=== PATIENT | male | born 1995 | race Caucasian/White ===

== ENCOUNTER 2021-07-11 08:44 | Day surgery (SDC) | payer OTHER ==
[~2021-07-11] VITALS: Ht 185.4 cm; Wt 112.5 kg
[~2021-07-11 08:44] MED LIST: ACET1TAB55 PO
[2021-07-11] MEDS ORDERED: MIDAZOLAM INJ 2MG/2ML VIAL (J2250 PER 1MG) As Ordered ONE (10:15)
[2021-07-11] MEDS ORDERED: ROCURONIUM BROMIDE 50 MG/5 ML VIAL As Ordered ONE (10:15)
[2021-07-11] MEDS ORDERED: SEVOFLURANE INHAL SOLN 250 ML BTL As Ordered ONE (10:15)
[2021-07-11] MEDS ORDERED: DESFLURANE 240 ML INHALANT As Ordered ONE (10:15)
[2021-07-11] MEDS ORDERED: METOCLOPRAMIDE INJ 10MG/2ML VIAL (J2765 PER 1) As Ordered ONE (10:15)
[2021-07-11] MEDS ORDERED: fentaNYL 100 MCG/2 ML INJECTION (J3010) As Ordered ONE ×2 (10:15→10:29)
[2021-07-11] MEDS ORDERED: propofoL 200 MG/20 ML VIAL As Ordered ONE ×2 (10:15→10:28)
[2021-07-11] MEDS ORDERED: dexameTHASONE 4 MG/ML 1ML VIAL (J1100 PER 1MG) As Ordered ONE ×2 (10:15→10:32)
[2021-07-11] MEDS ORDERED: ONDANSETRON 4MG/2ML VIAL As Ordered ONE (10:15)
[2021-07-11] MEDS ORDERED: LIDOCAINE 2% 100MG/5ML SDV (FOR ANES.) As Ordered ONE (10:15)
[2021-07-11] MEDS ORDERED: ACETAMINOPHEN 1000MG 100ML IV BTL (OFIRMEV) (J0131 PER 10MG) As Ordered ONE (10:18)
[2021-07-11] MEDS ORDERED: fentaNYL 100 MCG/2 ML INJECTION (J3010) IV PRN (12:00)
[2021-07-11] MEDS ORDERED: oxyCODONE 5MG TAB PO PRN (12:00)
[2021-07-11] MEDS ORDERED: LR 1,000 ML IV SCH (12:00)
[2021-07-11] MEDS ORDERED: ONDANSETRON 4MG/2ML VIAL IV PRN (12:00)
[2021-07-11 12:57] VITALS: BP 135/89
== END 2021-07-11 13:25 | disposition home or self-care (01) ==
LOC: M SDC 08:44
PROVIDERS: ATTEND Otolaryngology
DX: J35.01 Chronic tonsillitis (principal); J35.1 Hypertrophy of tonsils; G47.9 Sleep disorder, unspecified; R06.83 Snoring; M54.9 Dorsalgia, unspecified; M25.649 Stiffness of unspecified hand, not elsewhere classified; F17.290 Nicotine dependence, other tobacco product, uncomplicated; Z87.81 Personal history of (healed) traumatic fracture
CPT/HCPCS: 42826; 88302; J0131; J1100; J2250; J2405; J2765; J3010

== ENCOUNTER → 2022-03-13 | Outpatient (CLI) | payer OTHER | LOC: M SOG 08:21 | PROVIDERS: ATTEND Orthopaedic Surgery | DX: M25.511 Pain in right shoulder (principal) ==

== ENCOUNTER → 2022-06-19 | Outpatient (CLI) | payer OTHER ==
[~2022-06-19] MED LIST changes: +ISOVUE-300 61% 50ML VIAL As Ordered ONE; +LIDOCAINE 1% MDV 20ML VIAL As Ordered ONE; +NEOSPORIN OINT 0.9 GM PKT As Ordered ONE; +PROHANCE 279.3MG/ML 5ML VIAL As Ordered ONE
== END ==
LOC: M RADPRO 08:45
PROVIDERS: ATTEND Orthopaedic Surgery
DX: M75.41 Impingement syndrome of right shoulder (principal)
CPT/HCPCS: 23350; 73223; 77002; A9576

== ENCOUNTER 2022-07-12 06:17 | Day surgery (SDC) | payer OTHER ==
[~2022-07-12] VITALS: Ht 185.4 cm; Wt 110.2 kg
[~2022-07-12 06:17] MED LIST changes: -ISOVUE-300 61% 50ML VIAL As Ordered ONE; -LIDOCAINE 1% MDV 20ML VIAL As Ordered ONE; -NEOSPORIN OINT 0.9 GM PKT As Ordered ONE; -PROHANCE 279.3MG/ML 5ML VIAL As Ordered ONE; +TRANEXAMIC ACID 100 MG/ML 10ML VIAL IV ONE; +ceFAZolin SOD 2 GM in IV 1 EA IV ONE; +oxyCODONE 5MG TAB PO ONE
[2022-07-12] MEDS ORDERED: LR 1,000 ML IV SCH ×2 (06:40→09:55)
[2022-07-12] MEDS ORDERED: propofoL 200 MG/20 ML VIAL As Ordered ONE (07:06)
[2022-07-12] MEDS ORDERED: LIDOCAINE 2% 100MG/5ML SDV (FOR ANES.) As Ordered ONE (07:06)
[2022-07-12] MEDS ORDERED: ROCURONIUM BROMIDE 50MG/5ML VIAL As Ordered ONE (07:06)
[2022-07-12] MEDS ORDERED: MIDAZOLAM INJ 2MG/2ML VIAL As Ordered ONE (07:07)
[2022-07-12] MEDS ORDERED: fentaNYL 250 MCG/5 ML INJECTION As Ordered ONE (07:07)
[2022-07-12] MEDS ORDERED: LACRILUBE (AKWA TEARS) OPHTH OINT 3.5GM As Ordered ONE (07:08)
[2022-07-12] MEDS ORDERED: LIDOCAINE 1% SDV 30ML VIAL As Ordered ONE (07:15)
[2022-07-12] MEDS ORDERED: EPINEPHrine 1MG/ML INJ 30ML MD-VIAL As Ordered ONE (07:15)
[2022-07-12] MEDS ORDERED: EPINEPHrine INJ 1 MG/ML 1ML AMP PN ONE (07:20)
[2022-07-12] MEDS ORDERED: ROPIvacaine 0.5% 30ML VIAL PN ONE (07:20)
[2022-07-12] MEDS ORDERED: LIDOCAINE 1% SDV 5ML VIAL PN ONE (07:20)
[2022-07-12] MEDS ORDERED: fentaNYL 100 MCG/2 ML INJECTION IV PRN ×2 (07:20→09:55)
[2022-07-12] MEDS: MIDAZOLAM INJ 2MG/2ML VIAL IV PRN ×2 (07:38→07:40)
[2022-07-12] MEDS ORDERED: TRANEXAMIC ACID 100 MG/ML 10ML VIAL As Ordered ONE (07:39)
[2022-07-12] MEDS ORDERED: ACETAMINOPHEN 1000MG 100ML IV BAG As Ordered ONE (08:39)
[2022-07-12] MEDS ORDERED: KETOROLAC 60MG 2ML VIAL As Ordered ONE (08:39)
[2022-07-12] MEDS ORDERED: ONDANSETRON 4MG 2ML VIAL As Ordered ONE (08:39)
[2022-07-12] MEDS ORDERED: METOCLOPRAMIDE INJ 10MG/2ML VIAL As Ordered ONE (08:41)
[2022-07-12] MEDS ORDERED: SUGAMMADEX SODIUM 500 MG/5 ML VIAL (BRIDION) As Ordered ONE (08:42)
[2022-07-12] MEDS ORDERED: oxyCODONE 5MG TAB PO PRN (09:55)
[2022-07-12] MEDS ORDERED: HYDROMORPHONE HCL 0.5 MG/ 0.5 ML SYRINGE IV PRN (09:55)
[2022-07-12] MEDS ORDERED: ONDANSETRON 4MG 2ML VIAL IV PRN (09:55)
[2022-07-12] MEDS ORDERED: ACETAMINOPHEN TAB 650MG DOSE (2X325MG) PO PRN (10:20)
[2022-07-12] MEDS ORDERED: PERCOCET 5MG/325MG TAB PO PRN ×2 (10:20)
[2022-07-12] MEDS ORDERED: PERC5TAB12 PO (10:29)
[2022-07-12 11:54] VITALS: BP 137/92
== END 2022-07-12 11:56 | disposition home or self-care (01) ==
LOC: M SDC 06:17
PROVIDERS: ATTEND Orthopaedic Surgery
DX: M75.41 Impingement syndrome of right shoulder (principal); M24.111 Other articular cartilage disorders, right shoulder; M25.569 Pain in unspecified knee; M25.549 Pain in joints of unspecified hand; K21.9 Gastro-esophageal reflux disease without esophagitis; M54.9 Dorsalgia, unspecified; F17.290 Nicotine dependence, other tobacco product, uncomplicated
CPT/HCPCS: 23430; 29807; 29826; C1713; J1100; J2405

== ENCOUNTER → 2022-11-12 | Outpatient (CLI) | payer OTHER ==
[~2022-11-12] MED LIST changes: +PERC5TAB12 PO; -TRANEXAMIC ACID 100 MG/ML 10ML VIAL IV ONE; -ceFAZolin SOD 2 GM in IV 1 EA IV ONE; -oxyCODONE 5MG TAB PO ONE
== END ==
LOC: M SOG 08:00
PROVIDERS: ATTEND Orthopaedic Surgery
DX: Z53.9 Procedure and treatment not carried out, unspecified reason (principal)